=== PATIENT | male | born 1955 | race African-American/Black ===

== ENCOUNTER → 2018-06-11 | Outpatient (CLI) | payer MEDICARE, MEDICAID ==
--- NOTE | 2018-06-11 09:41 | RADIOLOGY REPORT (SQ) ---
EXAM DESCRIPTION: CT ABD/PELVIS WITH IV ONLY COMPLETED DATE/TIME: 06/11/2018 8:17 am REASON FOR STUDY: LLQ PAIN (R10.32) R10.32 LEFT LOWER QUADRANT PAIN COMPARISON: None. TECHNIQUE: CT scan of the abdomen and pelvis performed using helical scanning technique with dynamic intravenous contrast injection. No oral contrast. Images reviewed with lung, soft tissue, and bone windows. Reconstructed coronal and sagittal MPR images reviewed. Delayed images for evaluation of the urinary system also acquired. All images stored on PACS. All CT scanners at this facility use dose modulation, iterative reconstruction, and/or weight based d osing when appropriate to reduce radiation dose to as low as reasonably achievable (ALARA). [facility]: Dose Right [facility]: CareDose [facility]: Dose Right [facility]: Teradose 4D [facility]: StemCyte CONTRAST TYPE AND DOSE: contrast/concentration: Isovue 370.00 mg/ml; Total Contrast Delivered: 100.0 ml; Total Saline Delivered: 72.0 ml RENAL FUNCTION: Creatinine 1.2 RADIATION DOSE: CT Rad equipment meets quality standard of care and radiation dose reduction techniq ues were employed. CTDIvol: 11.9 - 13.7 mGy. DLP: 1304 mGy-cm.. LIMITATIONS: None. FINDINGS: LOWER CHEST: No significant findings. No nodules or infiltrates. LIVER: Normal size. No masses. No dilated ducts. The hepatic and portal veins are patent. SPLEEN: Normal size. No focal lesions. PANCREAS: No masses. No significant calcifications. No adjacent inflammation or peripancreatic fluid collections. Pancreatic duct not dilated. GALLBLADDER: No identified stones by CT criteria. No inflammatory changes to suggest cholecystitis. ADRENAL GLANDS: No significant masses or asymmetry. RIGHT KIDNEY AND URETER: No solid masses. No significant calcifications. No hydronephrosis or hyd roureter. LEFT KIDNEY AND URETER: Left renal cysts. No significant calcifications. No hydronephrosis or hydr oureter. AORTA AND VESSELS: No aneurysm. No dissection. Renal arteries, SMA, celiac without stenosis. RETROPERITONEUM: No retroperitoneal adenopathy, hemorrhage or masses. BOWEL AND PERITONEAL CAVITY: No masses or inflammatory changes. No free fluid or peritoneal masses. APPENDIX: Normal. PELVIS: The patient's right hip arthroplasty produces artifact limiting detail somewhat in the pelvi c region. Prostate gland measures 3.8 cm in diameter. Prostatic concretion. ABDOMINAL WALL: Bilateral small fat containing inguinal hernias. Small fat containing umbilical her sandy. BONES: Minimal to slight retrolisthesis of L5 or S1. Moderate to moderate severe facet arthrosis L5 -S1. Mild arthritic changes left hip with subchondral cystic changes in the lateral acetabular regio n. OTHER: No other significant finding. IMPRESSION: 1 Left renal cysts. 2 The patient's right hip arthroplasty produces artifact limiting detail somewhat in the pelvic regio n. 3 Bilateral small fat containing umbilical and inguinal hernias. 4. Moderate to moderate severe facet arthrosis lower lumbar spine. Minimal to slight retrolisthesis of L5 on S1. TECHNICAL DOCUMENTATION: JOB ID: [id number] Quality ID # [id number]: Final reports with documentation of one or more dose reduction techniques (e.g., Au tomated exposure control, adjustment of the mA and/or kV according to patient size, use of iterative reconstruction technique) 2010 [employer]- All Rights Reserved Reading location - IP/workstation name: [email or web address]
== END ==
LOC: RAD 07:25
PROVIDERS: ATTEND Internal Medicine
DX: R10.32 Left lower quadrant pain (principal); N28.1 Cyst of kidney, acquired; K42.9 Umbilical hernia without obstruction or gangrene; M47.897 Other spondylosis, lumbosacral region
CPT/HCPCS: 74177; 82565

== ENCOUNTER 2018-06-27 11:40 | Emergency (ER) | payer MEDICARE, MEDICAID ==
--- NOTE | 2018-06-27 12:39 | ER Document Report ---
ED Medical Screen (RME) - General Chief Complaint: Abdominal Pain Stated Complaint: SIDE PAIN Time Seen by Provider: 06/27/18 12:32 Mode of Arrival: Ambulatory Information source: Patient TRAVEL OUTSIDE OF THE [place] IN LAST 30 DAYS: No - HPI Patient complains to provider of: Abdominal pain and constipation Onset: This morning Onset/Duration: Gradual Quality of pain: Achy, Fullness Associated Symptoms: None Exacerbated by: Food Relieved by: Other - defecation Similar symptoms previously: Yes - Related Data Allergies/Adverse Reactions: No Known Allergies Allergy (Unverified 10/30/13 12:01) Past Medical History - Social History Cigarette use (# per day): No Chew tobacco use (# tins/day): No - Past Medical History Cardiac Medical History: Reports: Hx Hypercholesterolemia - meds x 1 year Denies: Hx Atrial Fibrillation, Hx Congestive Heart Failure, Hx Coronary Artery Disease, Hx Heart Attack, Hx Hypertension, Hx Peripheral Vascular Disease , Hx Heart Murmur Pulmonary Medical History: Denies: Hx Asthma, Hx Bronchitis, Hx COPD, Hx Pneumonia Neurological Medical History: Denies: Hx Cerebrovascular Accident, Hx Seizures Renal/ Medical History: Reports: Hx Benign Prostatic Hyperplasia - reports nocturia 7-8 x/night. Denies: Hx End Stage Renal Disease, Hx Kidney Stones, Hx Peritoneal Dialysis GI Medical History: Reports: Hx Gastroesophageal Reflux Disease - daily PPI. Denies: Hx Crohn's Disease, Hx Hiatal Hernia, Hx Irritable Bowel, Hx Liver Failure, Hx Pancreatitis, Hx Ulcer Musculoskeltal Medical History: Reports Hx Arthritis - reports arthritis of neck , denies neck injury, Denies Hx Fibromyalgia, Denies Hx Multiple Sclerosis, Denies Hx Muscular Dystrophy Psychiatric Medical History: Denies: Hx Dementia Traumatic Medical History: Reports: Hx Fractures - rib as a teenager "horseplay " Past Surgical History: Denies: Hx Colostomy - Immunizations Hx Diphtheria, Pertussis, Tetanus Vaccination: No Review of Systems - Review of Systems Constitutional: No symptoms reported EENT: No symptoms reported Cardiovascular: No symptoms reported Respiratory: No symptoms reported Gastrointestinal: See HPI Genitourinary: No symptoms reported Male Genitourinary: No symptoms reported Musculoskeletal: No symptoms reported Skin: No symptoms reported Hematologic/Lymphatic: No symptoms reported Neurological/Psychological: No symptoms reported Physical Exam - Vital signs Vitals: Temp Pulse Resp BP Pulse Ox 98.5 F 84 16 145/95 H 96 08/01/18 11:44 06/27/18 11:44 06/27/18 11:44 06/27/18 11:44 06/27/18 11:44 - General General appearance: Appears well In distress: None - HEENT Head: Normocephalic Eyes: Normal Conjunctiva: Normal - Respiratory Respiratory status: No respiratory distress Chest status: Nontender Breath sounds: Normal - Cardiovascular Rhythm: Regular Heart sounds: Normal auscultation - Abdominal Inspection: Normal Distension: No distension Tenderness: Tender, Other - in the llq no rebound, no guarding Organomegaly: No organomegaly - Genitourinary Inspection: Normal - Back Back: Normal - Extremities General upper extremity: Normal inspection General lower extremity: Normal inspection Course - Re-evaluation Re-evalutation: 06/27/18 14:50 This 62-year-old gentleman presents for evaluation the patient. He notes that his constipation is being treated on outpatient basis by intermittent use of MiraLAX though for the last few days he has not had any good bowel movements and he has been feeling a bit worse. As such he presented for further evaluation. He denies any emesis, he denies any fevers or chills, he denies any focal numbness or weakness. He is overall well appearing states that he feels as if he is just constipated, when asked if he had a colonoscopy before he said that he fell better during his bowel prep. Because he has had relief in the past with the use of mag citrate I offered him this is an option. We have deferred any laboratory testing at this time and he agrees with this course of action states that he will return in case of any worsening abdominal pain this evening. He verbalized understanding that there is not a definitive cause of the constipation identified at this time and that in case of any worsening he should return. - Vital Signs Vital signs: Temp Pulse Resp BP Pulse Ox 98.3 F 78 16 127/91 H 98 06/27/18 13:02 06/27/18 13:02 06/27/18 11:44 06/27/18 13:02 06/27/18 13:02 Doctor's Discharge - Discharge Condition: Stable Disposition: HOME, SELF-CARE Additional Instructions: You were seen today in the emergency department for constipation. He had an evaluation including a physical exam he was given a prescription for mag citrate , use the bottle tonight if you do not have improvement in symptoms by this evening return to the emergency room for further evaluation. If you have worsening abdominal pain cramping fevers chills inability to eat or drink please return to the emergency room as it may be more serious otherwise once he finished the bottle of mag citrate please proceed to use MiraLAX twice daily. Prescriptions: Polyethylene Glycol 3350 [Miralax Powder 17 gm/Packet] 1 packet PO BID #1 pkg Polyethylene Glycol 3350 [Miralax Powder 17 gm/Packet] 1 packet PO DAILY #1 pkg Referrals: DALTON LEVY MD [Primary Care Provider] - Follow up as needed
[2018-06-27] MEDS: MAGNESIUM CITRATE 296 ML BOTTLE PO ONE (12:58)
[2018-06-27 13:05] VITALS: BP 127/91
== END 2018-06-27 13:05 | disposition home or self-care (01) ==
LOC: ER 11:40
DX: K59.00 Constipation, unspecified (principal); R10.84 Generalized abdominal pain
CPT/HCPCS: 99284; J3490